=== PATIENT | female | born 1995 | race American Indian/Alaskan Native ===

== ENCOUNTER 2017-12-16 22:25 | Emergency (ER) | payer MEDICAID ==
[2017-12-16 23:19] VITALS: BP 197/126
== END 2017-12-16 22:55 | disposition left against medical advice (07) ==
LOC: ED 22:25
DX: Z20.2 Contact with and (suspected) exposure to infections with a predominantly sexual mode of transmission (principal); Z53.21 Procedure and treatment not carried out due to patient leaving prior to being seen by health care provider

== ENCOUNTER 2018-03-20 21:53 | Inpatient (IN) | payer MEDICAID ==
[2018-03-20] MEDS ORDERED: LACTATED RINGERS 1,000 ML ONE (22:15)
[2018-03-20] MEDS ORDERED: APRESOLINE ONE (23:06)
[2018-03-20] MEDS ORDERED: STADOL IV PRN (23:28)
[2018-03-20] MEDS ORDERED: PHENERGAN PR PRN (23:28)
[2018-03-20] MEDS ORDERED: NUBAIN IV PRN (23:28)
[2018-03-20] MEDS ORDERED: SUBLIMAZE IV PRN (23:28)
[2018-03-20] MEDS ORDERED: BRETHINE SUB-Q PRN (23:28)
[2018-03-20] MEDS ORDERED: PHENERGAN PO PRN (23:28)
[2018-03-20] MEDS ORDERED: MINERAL OIL PO PRN (23:28)
[2018-03-20] MEDS ORDERED: BRETHINE IVP PRN (23:28)
[2018-03-20] MEDS ORDERED: XYLOCAINE 2% INFILTRATI ONE (23:28)
[2018-03-20] MEDS ORDERED: APRESOLINE IV ONE (23:33)
[2018-03-20] MEDS ORDERED: PITOCin/NS 30 UNIT/500ML 30 UNITS/500 ML BAG IV SCH (23:45)
[2018-03-20] MEDS ORDERED: LACTATED RINGERS 1,000 ML IV SCH (23:45)
[2018-03-20] MEDS ORDERED: PROCARDIA XL PO SCH (23:45)
[2018-03-20] MEDS: PITOCin/NS 20 UNIT/1000ML DRIP 20 UNITS/1,000 ML BAG IV SCH (23:50)
[2018-03-21] MEDS ORDERED: TORADOL IV ONE (00:03)
--- NOTE | 2018-03-21 00:08 | History and Physical Report ---
History of Present Illness Date of examination: 03/21/18 Date of admission: 03/20/18 22:38 Chief complaint: Vaginal bleeding and cramps History of present illness: This is a 22-year-old female 3 para 1 who presented to triage complaining of severe vaginal bleeding and pain she gave an estimated date of delivery of 07/12/2018. States she had one visit to [facility] back in December for which time she was told her PACO. She is also seen at [facility] where she had another ultrasound that confirmed PACO. Patient states she began having severe pain and bleeding 30 minutes prior to arrival. Evaluation in triage revealed no heart tones. Ultrasound at bedside revealed nothing in the uterus. Pelvic exam revealed parts in the vagina. She is admitted now for demise with delivery. Of note, patient has superiorly elevated blood pressures in triage in the range of 200s over 130s. She gives a history of being diagnosed with hypertension at age 8. States she doesn't know the name of the medication that she was supposed to take. She took her last tablet however approximately 2 days ago. She states that both [facility] and [facility] she was given a prescription for blood pressure mediciation. The patient states she was evaluated by the cardiologists after her initial diagnosis of hypertension that evaluation was negative. No further evaluation was performed. Past History Past Medical History: hypertension Past Surgical History: no surgical history [employer] History: denies: abnormal PAP smear, chlamydia, gonorrhea, hepatitis B, hepatitis C, herpes, HIV, syphilis, trichomonas Social history: no significant social history. denies: smoking, alcohol abuse, prescription drug abuse, IV drug use - Obstetrical History Expected Date of Delivery: 07/12/18 Actual Gestation: 23 Week(s) 6 Day(s) : 3 Para: 1 Hx # Term Pregnancies: 0 Number of Pregnancies: 1 (7months ) Spontaneous Abortions: 1 (6months stillbirth) Number of Living Children: 1 Medications and Allergies Allergies Allergy/AdvReac Type Severity Reaction Status Date / Time No Known Allergies Allergy Verified 03/20/18 22:18 Active Meds: Active Medications Butorphanol Tartrate (Stadol) 2 mg IV Q2H PRN PRN Reason: Pain , Severe (7-10) Last Admin: 03/20/18 23:57 Dose: 2 mg Ephedrine Sulfate (Ephedrine Sulfate) 10 mg IV Q2M PRN PRN Reason: Hypotension Fentanyl (Sublimaze) 100 mcg IV Q2H PRN PRN Reason: Labor Pain Lactated Ringer's (Lactated Ringers) 1,000 mls @ 125 mls/hr IV DIRECT SANDRA Oxytocin/Sodium Chloride (Pitocin/Ns 20 Unit/1000ml Drip) 20 units in 1,000 mls @ 125 mls/hr IV DIRECT SANDRA Last Admin: 03/20/18 23:50 Dose: 125 mls/hr Oxytocin/Sodium Chloride (Pitocin/Ns 30 Unit/500ml) 30 units in 500 mls @ 1 mls /hr IV TITR SANDRA; Protocol Ketorolac Tromethamine (Toradol) 30 mg IV ONCE ONE Stop: 03/21/18 00:04 Mineral Oil (Mineral Oil) 30 ml PO QHS PRN PRN Reason: Constipation Nalbuphine HCl (Nubain) 10 mg IV Q2H PRN PRN Reason: Pain, Moderate (4-6) Nifedipine (Procardia Xl) 90 mg PO Q12HR SANDRA Promethazine HCl (Phenergan) 25 mg PO Q6H PRN PRN Reason: Nausea And Vomiting Promethazine HCl (Phenergan) 25 mg MO Q6H PRN PRN Reason: N/V if unable to take po Terbutaline Sulfate (Brethine) 0.25 mg SUB-Q ONCE PRN PRN Reason: Hyperstimulation/Hypertonicity Terbutaline Sulfate (Brethine) 0.25 mg IVP ONCE PRN PRN Reason: Hyperstimulation/Hypertonicity Review of Systems All systems: negative Genitourinary: vaginal bleeding, contractions - Vital Signs Vital signs: Vital Signs Temp Pulse Resp BP 100.2 F H 85 18 226/139 03/20/18 22:40 03/20/18 22:40 03/20/18 22:40 03/20/18 22:40 Temp Pulse Resp BP Pulse Ox 100.2 F H 96 H 18 198/118 03/20/18 22:40 03/20/18 23:51 03/20/18 23:57 03/20/18 23:51 - Physical Exam Breasts: Positive: deferred Cardiovascular: Regular rate Lungs: Positive: Normal air movement Abdomen: Positive: soft Genitourinary (Female): Positive: normal external genitalia, normal perenium Vulva: both: normal Anus/Rectum: Positive: normal perianal skin Extremities: Positive: normal Results All other labs normal. Assessment and Plan - Patient Problems (1) IUFD at 20 weeks or more of gestation Current Visit: Yes Status: Acute
[2018-03-21 00:11] LABS: Amphetamine Screen,Urine PRESUMPTIVE NEGATIVE; Benzodiazepines Screen,Urine PRESUMPTIVE NEGATIVE; Cocaine Screen,Urine PRESUMPTIVE NEGATIVE; Methadone Screen,Urine PRESUMPTIVE NEGATIVE; Opiate Screen,Urine PRESUMPTIVE NEGATIVE
--- NOTE | 2018-03-21 00:11 | Procedure Note ---
OB Delivery Note - Delivery Date of Delivery: 03/21/18 Surgeon: JAVON PERKINS Estimated blood loss: 100cc - Vaginal Delivery presentation: unknown (en caul) Intrapartum events: no care, labor-<37 weeks, other(please specify) (demise) Delivery monitor: external uterine Route of delivery: Delivery placenta: spontaneous Episiotomy: none Delivery laceration: none Anesthesia: none
[2018-03-21] MEDS: PITOCin/NS 20 UNIT/1000ML DRIP 20 UNITS/1,000 ML BAG IV SCH ×2 (00:22→00:31)
[2018-03-21 00:33] LABS: Cannabinoid Screen,Urine PRESUMPTIVE POSITIVE
[2018-03-21] MEDS ORDERED: NORMODYNE IV ONE (00:36)
[2018-03-21] MEDS ORDERED: MAGNESIUM SULFATE 4GM/100ML 4 GM/100 ML BAG IV ONE (00:40)
[2018-03-21] MEDS ORDERED: TYLENOL PO PRN (00:42)
[2018-03-21] MEDS ORDERED: LANSINOH TP PRN (00:42)
[2018-03-21] MEDS ORDERED: TUCKS PAD TP PRN (00:42)
[2018-03-21] MEDS ORDERED: PHENERGAN PO PRN (00:42)
[2018-03-21] MEDS ORDERED: PHENERGAN PR PRN (00:42)
[2018-03-21] MEDS ORDERED: DULCOLAX PR PRN (00:42)
[2018-03-21] MEDS ORDERED: MILK OF MAGNESIA PO PRN (00:42)
[2018-03-21] MEDS ORDERED: ZOFRAN IV PRN (00:42)
[2018-03-21 00:43] LABS: Hepatitis C Virus Antibody Non-Reactive (NonReactive)
--- NOTE | 2018-03-21 00:54 | Event Note ---
Date: 03/21/18 With BP's in sever range will treat as Preeclampsia and start MgSO4 for now. Labs Pendiing
[2018-03-21 00:55] LABS: Hematocrit 38.1 % (30.3-42.9); Hemoglobin 13.5 gm/dl (10.1-14.3); Mean Corpuscular HGB Conc 35 % (30-34); Mean Corpuscular Hemoglobin 34 pg (28-32); Mean Corpuscular Volume 96 fl (79-97); Platelet Count 365 K/mm3 (140-440); Red Blood Count 3.97 M/mm3 (3.65-5.03); Red Cell Distribution Width 13.5 % (13.2-15.2)
[2018-03-21] MEDS ORDERED: LACTATED RINGERS 1,000 ML IV SCH (01:00)
[2018-03-21] MEDS ORDERED: MAGNESIUM SULFATE 40GM/1000ML 40 GM/1,000 ML BAG IV SCH (01:00)
[2018-03-21] MEDS ORDERED: SODIUM CHLORIDE FLUSH SYRINGE 10 ML IV PRN (01:00)
[2018-03-21] MEDS ORDERED: MOTRIN PO SCH (01:00)
[2018-03-21 01:05] LABS: Alanine Aminotransferase 12 units/L (7-56); Albumin 4.2 g/dL (3.9-5); BUN/Creatinine Ratio 12; Blood Urea Nitrogen 6 mg/dL (7-17); Calcium 9.5 mg/dL (8.4-10.2); Hemolysis Index 68
[2018-03-21 01:12] LABS: Bacteria,Urine 1+ /HPF (Negative); Bilirubin,Urine NEG (Negative); Blood,Urine NEG (Negative); Color,Urine Yellow (Yellow); Mucus,Urine FEW /HPF
[2018-03-21 03:20] LABS: Uric Acid 4.9 mg/dL (3.5-7.6)
[2018-03-21 03:28] LABS: Rubella IgG Antibody Immune (Immune)
[2018-03-21 03:32] VITALS: BP 158/81
--- NOTE | 2018-03-21 03:41 | Event Note ---
Date: 03/21/18 Patient w/o complaints, BP's much improved, will continue MgSO4, Labetalol and Procardia and will transfer to
[2018-03-21] MEDS ORDERED: NORMODYNE PO SCH (04:00)
--- NOTE | 2018-03-21 09:23 | Event Note ---
Date: 03/21/18 Late entry: Received call from Raji Hernandez at ~500a stating patient wants to leave AMA. S/w Patient by phone, explained she may , have a seizure or stroke and become brain damaged if she refuses care and leaves hospital. She voiced understanding stating she will take her blood pressure medicine she had at home. She was informed that medication will not prevent her from having a seizures d/t preeclampsia. Encouraged her to stay until this pm at least and then will consider d/d home if stable. Again she voiced understanding and left AMA.
== END 2018-03-21 05:55 | disposition left against medical advice (07) | DRG 774 ==
LOC: TRG 21:53 → LD 22:38 → OB 03-21 06:08
PROVIDERS: ADMIT Obstetrics & Gynecology; ATTEND Obstetrics & Gynecology
PROC: 10E0XZZ Delivery of Products of Conception, External Approach (ICD-10-PCS; principal; 2018-03-21)
DX: O36.4XX0 Maternal care for intrauterine death, not applicable or unspecified (principal); O16.2 Unspecified maternal hypertension, second trimester; Z3A.23 23 weeks gestation of pregnancy; Z37.1 Single stillbirth; Z53.21 Procedure and treatment not carried out due to patient leaving prior to being seen by health care provider
CPT/HCPCS: 36415; 80053; 80307; 81001; 83615; 83735; 84550; 85027; 86592; 86706; 86762; 86803; 86850; 86900; 86901; 87806; 88307; J0360; J0595; J1885; J2590; J3475; J7120

== ENCOUNTER 2022-02-05 04:32 | Emergency (ER) | payer MEDICAID ==
[2022-02-05] MEDS ORDERED: MORPHINE 2 MG/1 ML INJ IV ONE (07:43)
--- NOTE | 2022-02-05 07:48 | Emergency Department Report ---
<ALBAN GARCIA - Last Filed: 02/05/22 14:14> ED General Adult HPI - General Chief complaint: Eye Problems Stated complaint: LEFT EYE SWELLING/HIGH BP Time Seen by Provider: 02/05/22 07:13 Source: patient Mode of arrival: Wheelchair Limitations: No Limitations - History of Present Illness Initial comments: 26 yo F with h/o chronic hypertension since she was 8 years old currently taken Labetalol who now present with left upper eyelid pain that started around midnight and progressively worsening. She also reports elevated blood pressure recorded to be 235/145 mmHg on presentation. No trauma reported to the left eye. No fever or chills noted. She also reports some leftsided headache but no visual changes. No other modifying or associated factors reported. Severity scale (0 -10): 8 - Related Data Previous Rx's Medication Instructions Recorded Last Taken Type labetaloL [Labetalol 200mg TAB] 200 mg PO TID #90 tablet 07/16/21 Unknown Rx Folic Acid 1 mg PO DAILY #30 tablet 07/17/21 Unknown Rx Allergies Allergy/AdvReac Type Severity Reaction Status Date / Time No Known Allergies Allergy Verified 10/06/18 22:47 ED Review of Systems Comment: All other systems reviewed and negative Eyes: eye pain, other (left upper eyelid pain ) Cardiovascular: other (hypertensive crisis ) ED Past Medical Hx - Past Medical History Previous Medical History?: Yes Hx Hypertension: Yes Hx Congestive Heart Failure: No Hx Diabetes: No Hx Deep Vein Thrombosis: No Hx Renal Disease: No Hx Sickle Cell Disease: No Hx Seizures: No Hx Asthma: No Hx COPD: No Hx HIV: No - Surgical History Past Surgical History?: Yes Additional Surgical History: - Social History Smoking Status: Never Smoker Substance Use Type: None - Medications Home Medications: Home Medications Medication Instructions Recorded Confirmed Last Taken Type labetaloL [Labetalol 200mg TAB] 200 mg PO TID #90 tablet 07/16/21 Unknown Rx Folic Acid 1 mg PO DAILY #30 tablet 07/17/21 Unknown Rx ED Physical Exam - General Limitations: No Limitations General appearance: alert, in no apparent distress - Head Head exam: Present: normal inspection - Eye Eye exam: Present: periorbital swelling, periorbital tenderness Pupils: Present: normal accommodation - ENT ENT exam: Present: normal exam, normal orophraynx, mucous membranes moist - Neck Neck exam: Present: normal inspection, full ROM. Absent: tenderness - Respiratory Respiratory exam: Present: normal lung sounds bilaterally. Absent: respiratory distress, accessory muscle use - Cardiovascular Cardiovascular Exam: Present: regular rate, normal rhythm, normal heart sounds - GI/Abdominal GI/Abdominal exam: Present: soft, normal bowel sounds. Absent: distended, tenderness - Back Exam Back exam: Present: normal inspection. Absent: tenderness - Neurological Exam Neurological exam: Present: alert, oriented X3 - Psychiatric Psychiatric exam: Present: normal affect - Skin Skin exam: Present: warm, normal color ED Course - Reevaluation(s) Reevaluation #1: 02/05/22 07:50 here with left upper eyelid swelling with tenderness and noted erythema consistent with likely stye-- which likely contributed to her hypertensive crisis-- given morphine 2 mg Iv x 1 and Labetalol 20mg IV x 1 -- will also get routine labs for any infectious process as a stressor or any electrolytes derangement. Reevaluation #2: 02/05/22 14:14 Noticed this patient blood pressure going up again-- and still reports pain in her left eyes-- will go ahead and other CT head and given hydralazine 20 mg IV x 1 and dilaudid 1 mg for pain while waiting for other labs-- Reevaluation #3: 02/05/22 14:17 pt signed out to Dr Ervin while waiting for patient response to recent antihypertensive and the pain medication given above -- ED Medical Decision Making - Lab Data Result diagrams: 02/05/22 08:28 02/05/22 08:28 ED Disposition Clinical Impression: Hypertensive crisis, Hypertensive urgency, Pain and swelling of eyelid of left eye Disposition: 01 HOME / SELF CARE / HOMELESS Does the pt Need Aspirin: No Condition: Stable Instructions: Hypertension (ED), Managing Your Hypertension Additional Instructions: Continue take your blood pressure medication and make a follow-up appointment with your primary care provider to be seen within 3 to 5 days for further outpatient blood pressure management. Referrals: BANDAR DEAN MD [Primary Care Provider] - 3-5 Days <BENNY ROBBINS - Last Filed: 02/05/22 22:39> ED Review of Systems ROS: Stated complaint: LEFT EYE SWELLING/HIGH BP Other details as noted in HPI ED Course Vital Signs 02/05/22 02/05/22 02/05/22 04:33 05:31 05:33 Temperature 97.6 F Pulse Rate 66 70 Respiratory 18 16 Rate Blood Pressure 221/137 Blood Pressure 232/149 [Left] O2 Sat by Pulse 98 94 96 Oximetry 02/05/22 02/05/22 02/05/22 06:33 08:17 08:20 Temperature Pulse Rate 67 62 79 Respiratory 18 15 Rate Blood Pressure 235/147 Blood Pressure 230/139 235/147 [Left] O2 Sat by Pulse 96 100 Oximetry 02/05/22 02/05/22 02/05/22 08:23 08:31 08:45 Temperature Pulse Rate 80 79 55 L Respiratory 13 12 10 L Rate Blood Pressure 238/147 208/132 Blood Pressure [Left] O2 Sat by Pulse 100 60 L 100 Oximetry 02/05/22 02/05/22 02/05/22 09:01 09:15 09:31 Temperature Pulse Rate 75 67 68 Respiratory 17 14 14 Rate Blood Pressure 229/142 224/140 223/139 Blood Pressure [Left] O2 Sat by Pulse 100 100 100 Oximetry 02/05/22 02/05/22 02/05/22 09:45 10:01 10:06 Temperature Pulse Rate 73 69 90 Respiratory 19 16 14 Rate Blood Pressure 201/124 223/132 Blood Pressure 215/142 [Left] O2 Sat by Pulse 100 100 100 Oximetry 02/05/22 02/05/22 02/05/22 10:15 10:31 10:34 Temperature Pulse Rate 108 H 64 69 Respiratory 23 16 Rate Blood Pressure 215/142 194/115 194/115 Blood Pressure [Left] O2 Sat by Pulse 99 100 Oximetry 02/05/22 02/05/22 02/05/22 10:45 11:01 11:08 Temperature Pulse Rate 72 66 75 Respiratory 14 13 Rate Blood Pressure 205/153 212/135 212/135 Blood Pressure [Left] O2 Sat by Pulse 100 100 Oximetry 02/05/22 02/05/22 02/05/22 11:09 11:15 11:31 Temperature Pulse Rate 69 66 77 Respiratory 15 17 15 Rate Blood Pressure 212/135 220/130 Blood Pressure 212/135 [Left] O2 Sat by Pulse 100 99 100 Oximetry 02/05/22 02/05/22 02/05/22 11:45 12:01 12:15 Temperature Pulse Rate 70 69 92 H Respiratory 16 16 14 Rate Blood Pressure 226/136 206/139 206/139 Blood Pressure [Left] O2 Sat by Pulse 100 100 100 Oximetry 02/05/22 02/05/22 02/05/22 12:31 12:45 12:52 Temperature Pulse Rate 68 96 H 73 Respiratory 10 L 22 14 Rate Blood Pressure 224/142 224/142 Blood Pressure 201/105 [Left] O2 Sat by Pulse 100 98 100 Oximetry 02/05/22 02/05/22 02/05/22 13:01 13:15 13:31 Temperature Pulse Rate 76 73 83 Respiratory 17 16 17 Rate Blood Pressure 204/144 204/144 221/145 Blood Pressure [Left] O2 Sat by Pulse 100 100 100 Oximetry 02/05/22 02/05/22 02/05/22 13:45 13:58 14:01 Temperature Pulse Rate 70 66 73 Respiratory 17 11 L 15 Rate Blood Pressure 221/145 217/130 Blood Pressure 217/130 [Left] O2 Sat by Pulse 100 100 100 Oximetry 02/05/22 02/05/22 02/05/22 14:15 14:31 14:45 Temperature Pulse Rate 74 77 71 Respiratory 13 17 20 Rate Blood Pressure 224/138 196/152 196/152 Blood Pressure [Left] O2 Sat by Pulse 100 100 97 Oximetry 02/05/22 02/05/22 02/05/22 15:01 15:15 15:31 Temperature Pulse Rate 85 76 84 Respiratory 19 16 12 Rate Blood Pressure 213/167 203/123 155/101 Blood Pressure [Left] O2 Sat by Pulse 100 100 100 Oximetry 02/05/22 02/05/22 02/05/22 15:45 16:01 16:15 Temperature Pulse Rate 82 86 102 H Respiratory 15 15 17 Rate Blood Pressure 155/101 165/102 165/102 Blood Pressure [Left] O2 Sat by Pulse 100 99 100 Oximetry 02/05/22 02/05/22 02/05/22 16:31 16:45 17:01 Temperature Pulse Rate 103 H 81 75 Respiratory 16 17 16 Rate Blood Pressure 168/101 168/101 156/120 Blood Pressure [Left] O2 Sat by Pulse 100 100 100 Oximetry 02/05/22 02/05/22 02/05/22 17:15 17:31 17:45 Temperature Pulse Rate 84 81 89 Respiratory 14 16 18 Rate Blood Pressure 156/120 165/112 165/112 Blood Pressure [Left] O2 Sat by Pulse 100 100 100 Oximetry 02/05/22 02/05/22 02/05/22 17:47 18:01 18:15 Temperature Pulse Rate 68 77 71 Respiratory 15 15 15 Rate Blood Pressure 197/127 197/127 Blood Pressure 168/112 [Left] O2 Sat by Pulse 100 100 100 Oximetry 02/05/22 02/05/22 02/05/22 18:31 18:45 19:00 Temperature Pulse Rate 71 95 H 75 Respiratory 16 13 14 Rate Blood Pressure 197/115 186/111 Blood Pressure 185/112 [Left] O2 Sat by Pulse 100 100 100 Oximetry 02/05/22 02/05/22 02/05/22 19:01 19:15 19:31 Temperature Pulse Rate 71 74 79 Respiratory 15 15 16 Rate Blood Pressure 181/121 181/121 175/111 Blood Pressure [Left] O2 Sat by Pulse 100 100 100 Oximetry 02/05/22 02/05/22 02/05/22 19:45 20:01 20:15 Temperature Pulse Rate 80 100 H 69 Respiratory 20 26 H 15 Rate Blood Pressure 181/121 190/121 190/121 Blood Pressure [Left] O2 Sat by Pulse 100 100 100 Oximetry 02/05/22 02/05/22 02/05/22 20:43 20:45 21:01 Temperature Pulse Rate 74 83 67 Respiratory 11 L 16 14 Rate Blood Pressure Blood Pressure [Left] O2 Sat by Pulse 100 100 100 Oximetry 02/05/22 02/05/22 02/05/22 21:15 21:31 21:45 Temperature Pulse Rate 78 78 90 Respiratory 16 16 16 Rate Blood Pressure 185/131 185/131 Blood Pressure [Left] O2 Sat by Pulse 100 100 100 Oximetry 02/05/22 22:01 Temperature Pulse Rate 70 Respiratory 14 Rate Blood Pressure 184/122 Blood Pressure [Left] O2 Sat by Pulse 100 Oximetry - Reevaluation(s) Reevaluation #4: 02/05/22 16:16 This is a pleasant 26-year-old female with medical history of hypertension currently on labetalol 200 mg and according patient has no change of medication frequency or dosages for the past 2 years came in today with concerns of left upper eyelid swelling. Patient was seen by my colleague who signed out patient care to me for continued medical care. During my initial evaluation patient st ates the left eyelid swelling has significantly subsided. Patient denies any other discomfort. Review of labs revealed that patient does have an elevated BNP but patient denies short of breath and is not in clinically congestive heart failure exacerbation. Patient first came in with elevated blood pressure in a hypertensive crisis range so I will also order troponin to ensure there is no cardiac injury given that the BNP was elevated; to ensure no end organ damage. At the time my evaluation patient's blood pressure is within acceptable range and patient has no neurological deficit or lateralization. Currently pending CXR and also troponin and will continue to monitor blood pressure. 02/05/22 16:20 02/05/22 18:15 Still pending Tropnonin. I have stopped by to see the patient again; during my reexamination, I don't appreciate any eye lid swelling or any signs of stye. 02/05/22 22:37 Patient initially presented with blood pressure in the hypertensive crisis range and labs revealed no and organ damage therefore hypertensive urgency. Patient will continue her blood pressure medication make a follow-up appointment with her primary care provider to be seen within 3 to 5 days for further outpatient evaluation and also management of her blood pressure. ED Medical Decision Making - Lab Data Result diagrams: 02/05/22 08:28 02/05/22 08:28 Critical care attestation.: If time is entered above; I have spent that time in minutes in the direct care of this critically ill patient, excluding procedure time. ED Disposition Is pt being admited?: No Does the pt Need Aspirin: No Time of Disposition: 22:39
[2022-02-05 09:04] LABS: Basophils % (Auto) 0.6 % (0.0-1.8); Eosinophils # (Auto) 0.1 K/mm3 (0.0-0.4); Eosinophils % (Auto) 1.1 % (0.0-4.3); Hematocrit 37.5 % (30.3-42.9); Hemoglobin 12.8 gm/dl (10.1-14.3); Lymphocytes # (Auto) 1.3 K/mm3 (1.2-5.4); Lymphocytes % (Auto) 17.3 % (13.4-35.0); Mean Corpuscular HGB Conc 34 % (30-34); Mean Corpuscular Volume 89 fl (79-97); Monocytes # (Auto) 0.2 K/mm3 (0.0-0.8); Platelet Count 399 K/mm3 (140-440); Red Cell Distribution Width 14.2 % (13.2-15.2)
[2022-02-05 09:28] LABS: Alanine Aminotransferase 6 units/L (7-56); Albumin 4.8 g/dL (3.9-5); Blood Urea Nitrogen 11 mg/dL (7-17); Calcium 10.1 mg/dL (8.4-10.2); Hemolysis Index 6
[2022-02-05 09:31] LABS: BUN/Creatinine Ratio 16
[2022-02-05 09:37] LABS: Free T4 (Free Thyroxine) 1.33 ng/dL (0.76-1.46)
[2022-02-05] MEDS ORDERED: cloNIDine 0.1 MG TAB PO ONE ×2 (10:24→22:50)
[2022-02-05 10:50] LABS: Bilirubin,Urine NEG (Negative); Blood,Urine LG (Negative); Color,Urine Yellow (Yellow); Urobilinogen,Urine < 2.0 mg/dL (<2.0)
[2022-02-05 10:51] LABS: Mucus,Urine FEW /HPF
[2022-02-05 10:54] LABS: HCG Qualitative,Urine Negative (Negative)
[2022-02-05 11:14] LABS: Amphetamine Screen,Urine Negative; Benzodiazepines Screen,Urine Negative; Methadone Screen,Urine Negative; Opiate Screen,Urine Negative
[2022-02-05 11:38] LABS: Cannabinoid Screen,Urine Positive; Cocaine Screen,Urine Positive
[2022-02-05 12:12] LABS: INR 0.9 (0.87-1.13)
[2022-02-05 12:13] LABS: Partial Thromboplastin Time 37.5 Sec. (24.2-36.6)
[2022-02-05] MEDS ORDERED: HYDROmorphone 1 MG/1 ML INJ IV ONE (14:17)
[2022-02-05] MEDS ORDERED: hydrALAZINE 20 MG/1 ML INJ IV ONE (14:17)
--- NOTE | 2022-02-05 16:49 | XRay Report ---
CHEST 1 VIEW INDICATION / CLINICAL INFORMATION: Chest pain. COMPARISON: None available. FINDINGS: SUPPORT DEVICES: None. HEART / MEDIASTINUM: No significant abnormality. LUNGS / PLEURA: No significant pulmonary or pleural abnormality. No pneumothorax. ADDITIONAL FINDINGS: No significant additional findings. IMPRESSION: 1. No acute findings. Signer Name: Emilie Amador MD Signed: 02/05/2022 4:44 PM Workstation Name: [id number]
[2022-02-05] MEDS ORDERED: ONDANSETRON 4 MG/2 ML INJ IV ONE (20:13)
--- NOTE | 2022-02-05 20:59 | Cat Scan Report ---
NONENHANCED CT SCAN OF THE HEAD: INDICATION / CLINICAL INFORMATION: 26 years Female; n/v elevated blood pressure. TECHNIQUE: Routine CT head without contrast. All CT scans at this location are performed using CT dos e reduction for ALARA by means of automated exposure control. COMPARISON: CT scan of the head from 07/16/2021 FINDINGS: BRAIN / INTRACRANIAL CONTENTS: No acute hemorrhage, mass effect, midline shift, hydrocephalus, or acu te, large territorial infarct. Multiple focal low-attenuation white matter lesions seen in both cereb ral hemispheres; unchanged since the previous CT scan; given the history of hypertension, these could be due to chronic small vessel disease; no CT findings to suggest posterior reversible ischemic ence phalopathy. CRANIOCERVICAL JUNCTION: No significant abnormality. ORBITS: No significant abnormality of visualized orbits. SINUSES / MASTOIDS: No significant abnormality of the visualized paranasal sinuses or mastoid air gama ls. ADDITIONAL FINDINGS: None. IMPRESSION: No intracerebral hemorrhage or acute parenchymal lesion Multiple low-attenuation white matter lesions in both cerebral hemispheres; unchanged; given the hist ory of hypertension, these are probably due to chronic small vessel disease; however, considering the age, demyelinating disease could not be excluded Signer Name: Ronal Zhao MD Signed: 02/05/2022 8:55 PM Workstation Name: [email or web address]
[2022-02-05 22:15] VITALS: BP 184/122
[2022-02-05] MEDS ORDERED: ACETAMINOPHEN 325 MG TAB PO ONE (22:50)
== END 2022-02-05 23:10 | disposition home or self-care (01) ==
LOC: ED 04:32
DX: H57.12 Ocular pain, left eye (principal); I16.9 Hypertensive crisis, unspecified; I16.0 Hypertensive urgency; Z79.899 Other long term (current) drug therapy
CPT/HCPCS: 36415; 70450; 71045; 80053; 80307; 81001; 81025; 83880; 84439; 84443; 84484; 85025; 85610; 85730; 96374; 96375; 96376; 99285; J0360; J1170; J2270; J2405; J3490; 80320; G0480

== ENCOUNTER 2022-02-08 16:09 | Emergency (ER) | payer MEDICAID ==
[2022-02-08] MEDS ORDERED: cloNIDine 0.1 MG TAB PO ONE (17:36)
[2022-02-08 18:39] LABS: Alanine Aminotransferase 6 units/L (7-56); Albumin 4.7 g/dL (3.9-5); Blood Urea Nitrogen 9 mg/dL (7-17); Calcium 10.1 mg/dL (8.4-10.2); Hemolysis Index 36
[2022-02-08 18:41] LABS: BUN/Creatinine Ratio 13
[2022-02-08 19:00] LABS: Hematocrit 38.9 % (30.3-42.9); Hemoglobin 13.5 gm/dl (10.1-14.3); Mean Corpuscular HGB Conc 35 % (30-34); Mean Corpuscular Volume 89 fl (79-97); Platelet Count 404 K/mm3 (140-440); Red Blood Count 4.37 M/mm3 (3.65-5.03); Red Cell Distribution Width 14.2 % (13.2-15.2)
[2022-02-08 19:03] VITALS: BP 211/151
--- NOTE | 2022-02-08 21:22 | Cat Scan Report ---
CT head/brain wo con INDICATION / CLINICAL INFORMATION: 26 years Female; ey. Hypertension; ocular pain TECHNIQUE: Routine CT head without contrast. All CT scans at this location are performed using CT dos e reduction for ALARA by means of automated exposure control. COMPARISON: FINDINGS: BRAIN / INTRACRANIAL CONTENTS: No acute hemorrhage, mass effect, midline shift, hydrocephalus, or acu te, large territorial infarct. No signs of significant atrophy or chronic infarct. There are moderate areas of decreased attenuation in the white matter of the cerebral hemispheres. Th machelle are nonspecific findings and may be related to demyelinating disease, microangiopathy (hypertensi on, diabetes, atherosclerosis), vasculitis, etc. given the patient's age. CRANIOCERVICAL JUNCTION: No significant abnormality. ORBITS: No significant abnormality of visualized orbits. SINUSES / MASTOIDS: There is near complete opacification of the left frontal sinus. Prominent soft ti ssue is seen in the roof of the nasopharynx, presumably related to reactive adenoidal tissue. Please clinically correlate. Similar findings on prior. ADDITIONAL FINDINGS: None. IMPRESSION: 1. No focal mass, hemorrhage, hydrocephalus, or acute, large territorial infarct. Signer Name: Chino Mora MD, III Signed: 02/08/2022 9:17 PM Workstation Name: [email or web address]
== END 2022-02-08 21:00 | disposition left against medical advice (07) ==
LOC: ED 16:09
DX: I10 Essential (primary) hypertension (principal); Z53.21 Procedure and treatment not carried out due to patient leaving prior to being seen by health care provider
CPT/HCPCS: 36415; 70450; 80053; 85027